=== PATIENT | female | born 1950 | race Caucasian/White ===

== ENCOUNTER 2022-02-19 13:25 | Inpatient (IN) | payer MEDICARE, SELFPAY ==
[2022-02-19] VITALS (22 sets, daily range): BP systolic 134–165; BP diastolic 59–84; PULSE 79–85; RESP 14–16; TEMP 36.8–36.9; O2SAT 98–100; BMI 20.3
--- NOTE | ~2022-02-19 | XR_ITS ---
EXAMINATION: XR femur RT min 2V INDICATION: Right hip pain TECHNIQUE: Two views of the right femur are obtained on four radiographs. COMPARISON: None FINDINGS: There is an acute subcapital fracture of the right femoral neck. The femoral head is well-s eated in the acetabulum. No additional osseous abnormality is identified. IMPRESSION: 1. Acute subcapital right femoral neck fracture. Reviewed, dictated and finalized at location A.
--- NOTE | ~2022-02-19 | XR_ITS ---
EXAMINATION: XR hip RT 1V DATE: 02/21/2022 18:23 INDICATION: Right hip arthroplasty. Postop. TECHNIQUE: A single view of right hip was obtained. COMPARISON: Right hip radiographs 02/19/2022 FINDINGS: There is a total right hip arthroplasty in near-anatomic alignment. No fracture. There is g as in the hip joint and soft tissues, consistent with recent surgery. IMPRESSION: 1. Total right hip arthroplasty in near-anatomic alignment. Reviewed, dictated and finalized at location A.
--- NOTE | ~2022-02-19 | CT_ITS ---
EXAMINATION: CTA chest PE protocol DATE: 02/21/2022 21:58 INDICATION: Chest pressure. TECHNIQUE: Computed tomography angiography (CTA) of the chest was performed with 100 mL Omnipaque-350 intravenous contrast timed to evaluate the pulmonary arteries. Coronal maximum intensity projection 3D-reconstructions were created by the technologist. Automated exposure control and iterative reconst ruction technique were employed. The dose-length product was 132.87 mGy-cm. COMPARISON: Chest single view 02/20/2022 FINDINGS: There is mild scarring at the lung apices. There are airspace and groundglass opacities in left lower lobe and lingula, consistent with pneumonia. There is mild atelectasis in the lungs. No pl eural effusion. The heart size is normal. There are coronary artery calcifications. No pericardial ef fusion. There is no pulmonary embolus. There are changes of cholecystectomy. There is moderate thorac ic spondylosis. IMPRESSION: 1. No pulmonary embolus. 2. Pneumonia involving left lower lobe and lingula. Reviewed, dictated and finalized at location A.
--- NOTE | ~2022-02-19 | XR_ITS ---
EXAMINATION: XR pelvis 1-2V INDICATION: Right hip pain TECHNIQUE: AP view the pelvis is obtained. COMPARISON: None available FINDINGS: There is an acute subcapital fracture of the right femoral neck. No additional fracture is identified. Phleboliths are noted in the right pelvis. IMPRESSION: 1. Subcapital right femoral neck fracture. Reviewed, dictated and finalized at location A.
--- NOTE | ~2022-02-19 | XR_ITS ---
EXAMINATION: XR chest 1V portable INDICATION: Pain after fall TECHNIQUE: Portable AP chest at 0607 hours COMPARISON: None available FINDINGS: The lungs are free of acute opacities. No pleural effusion or pneumothorax. The cardiomedia stinal silhouette is normal. IMPRESSION: 1. No acute cardiopulmonary abnormality. Reviewed, dictated and finalized at location A.
--- NOTE | ~2022-02-19 | XR_ITS ---
XR knee RT 2V 02/21/2022 12:49 Indication: Right knee pain Procedure: 2 views right knee Comparison: No prior studies for comparison. Findings: There is mild patellofemoral compartment osteoarthritis of the right knee. No fracture, sub luxation or dislocation. No significant joint effusion. Impression: 1: Mild patellofemoral compartment osteoarthritis of the right knee. Reviewed, dictated and finalized at location B. Impression: 1: Mild patellofemoral compartment osteoarthritis of the right knee.
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
[2022-02-19] MEDS: fentaNYL CITRATE INJ (*CRX) 100 MCG/2 ML VIAL 50 MCG IV PUSH (13:47)
[2022-02-19 15:24] LABS: Basophils Absolute Auto 0.1 K/mm3 (0.0-0.1); Basophils Percent Auto 0.7 % (0.2-1.2); Eosinophils Absolute Auto 0.1 K/mm3 (0-0.3); Eosinophils Percent Auto 1.8 % (0-4.4); Hematocrit 32.2 % (37.0-47.0); Hemoglobin 10.1 g/dL (12.0-15.0); Immature Granulocyte Absolute 0.04 K/mm3 (0.00-0.031); Immature Granulocyte Percent A 0.5 % (0-0.5); Lymphocytes Percent Auto 16.9 % (18.3-44.2); Mean Corpuscular HGB Conc 31.4 g/dl (32-36); Mean Corpuscular Hemoglobin 30.4 pg (26-34); Mean Platelet Volume 8.8 fl (7.4-10.4); Monocytes Absolute Auto 0.5 K/mm3 (0.1-0.6); Monocytes Percent Auto 5.9 % (2.6-8.5); Neutrophils Absolute Auto 5.7 K/mm3 (1.3-6.7); Neutrophils Percent Auto 74.2 % (45.5-73.1); Platelet Count Result 262 k/mm3 (150-375); Red Blood Count 3.32 M/mm3 (4.2-5.4); White Blood Count 7.7 K/mm3 (4.5-10.0)
[2022-02-19 15:37] LABS: Alanine Aminotransferase 27 U/L (6-35); Albumin Level 4.2 g/dL (3.5-5.1); Alkaline Phosphatase 75 U/L (38-126); Anion Gap 5 mmol/L (8-16); Aspartate Amino Transferase 32 U/L (14-36); Bilirubin,Total 0.4 mg/dL (0.2-1.3); Blood Urea Nitrogen 21 mg/dL (7-17); Calcium 9.5 mg/dL (8.4-10.2); Carbon Dioxide 28 mmol/L (22-30); Chloride 101 mmol/L (98-107); Estimated CRCL calculation 35 ml/min; Estimated Glomerular Filt Rate 49; Glucose 229 mg/dL (65-110); Potassium 4.8 mmol/L (3.4-5.0); Sodium 134 mmol/L (137-145)
[2022-02-19] MEDS: MORPHINE SULFATE (*CRX) 4 MG/ML INJ IV PUSH ×3 (17:25→23:00)
--- NOTE | 2022-02-19 18:10 | PC.NURSE ---
This patient, Hilda Mathew, was admitted to 2 Medical Room 243-. Patient/family oriented to hospital policies and general routines including ID bracelet, bed and alarms, visiting hours, pain management, procedures, bathroom and other care routines, personal items, smoking policy, room service/diet, and visiting hours. Information on how to activate the Rapid Response Team has been discussed. Patient/Family are encouraged to report perceived risks to care and to ask questions if they do not understand what they are told or what they should do.
[2022-02-19 20:09] LABS: Glucose Point of Care 242 mg/dl (65-105)
[2022-02-19] MEDS: traZODone HCL 25 MG TABLET PO (23:00)
[2022-02-19] MEDS: ESCITALOPRAM OXALATE 10 MG TABLET PO (23:00)
[2022-02-19 23:18] LABS: Glucose Point of Care 357 mg/dl (65-105)
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
[2022-02-19] MEDS: INSULIN ASPART (*BKC) 100 UNITS/ML 6 UNITS SUB-Q (23:39)
[2022-02-19] MEDS: MAGNESIUM OXIDE 400 MG TABLET PO (23:41)
[2022-02-19] MEDS: metFORMIN HCL 500 MG TABLET 1000 MG PO (23:41)
[2022-02-19] MEDS: PANTOPRAZOLE 40 MG TABLET PO (23:58)
[2022-02-20 03:58] LABS: Glucose Point of Care 285 mg/dl (65-105)
[2022-02-20] MEDS: MORPHINE SULFATE (*CRX) 4 MG/ML INJ 1 MG IV PUSH ×3 (04:24→23:04)
[2022-02-20 05:36] LABS: Hemoglobin A1C 8.8 % (<5.7)
[2022-02-20 05:39] LABS: Magnesium 1.8 mg/dL (1.6-2.3)
[2022-02-20 06:00] VITALS: BP 140/60; PULSE 84; RESP 16; TEMP 36.6; O2SAT 100
[2022-02-20 06:28] LABS: Hemoglobin 10.2 g/dL (12.0-15.0); Mean Corpuscular HGB Conc 30.9 g/dl (32-36); Mean Corpuscular Hemoglobin 30.8 pg (26-34); Mean Corpuscular Volume 99.7 fl (80-100); Mean Platelet Volume 9.4 fl (7.4-10.4); Platelet Count Result 259 k/mm3 (150-375); Red Blood Count 3.31 M/mm3 (4.2-5.4); White Blood Count 7.3 K/mm3 (4.5-10.0)
--- NOTE | 2022-02-20 07:00 | ECG_ITS ---
Measurements Intervals Shirley Rate: 80 P: 70 ID: [id number] QRS: 35 QRSD: 85 T: 60 QT: 387 QTc: 447 Interpretive Statements SINUS RHYTHM NORMAL ECG NO PREVIOUS ECG AVAILABLE FOR COMPARISON Electronically Signed On 02-20-2022 14:40:50 CDT by Geovani Okeefe M.D.
[2022-02-20 08:32] VITALS: O2SAT 96
[2022-02-20 08:42] LABS: Glucose Point of Care 298 mg/dl (65-105)
[2022-02-20 09:06] LABS: Anion Gap 9 mmol/L (8-16); Blood Urea Nitrogen 18 mg/dL (7-17); Calcium 9.6 mg/dL (8.4-10.2); Carbon Dioxide 22 mmol/L (22-30); Chloride 103 mmol/L (98-107); Estimated CRCL calculation 38 ml/min; Estimated Glomerular Filt Rate 55; Glucose 295 mg/dL (65-110); Potassium 4.5 mmol/L (3.4-5.0); Sodium 134 mmol/L (137-145)
[2022-02-20] MEDS: LEVOTHYROXINE SODIUM 112 MCG TABLET PO (09:19)
[2022-02-20] MEDS: MAGNESIUM OXIDE 400 MG TABLET PO ×2 (09:20→17:40)
[2022-02-20] MEDS: LORATADINE 10 MG TABLET PO (09:20)
[2022-02-20] MEDS: PANTOPRAZOLE 40 MG TABLET PO ×2 (09:21→17:40)
[2022-02-20] MEDS: INSULIN ASPART (*BKC) 100 UNITS/ML SUB-Q ×2 (09:22→17:40)
[2022-02-20] MEDS: INSULIN GLARGINE (*BKC) 100 UNITS/ML 8 UNITS SUB-Q (09:24)
[2022-02-20 09:35] LABS: Total Triiodothyronine (T3) 0.86 NG/ML (0.97-1.69)
[2022-02-20] MEDS: HYDROcodone/acetaminophen (*CRX) 5-325 MG TABLET 1 TAB PO ×2 (09:45→17:43)
[2022-02-20 11:45] LABS: Glucose Point of Care 190 mg/dl (65-105)
[2022-02-20 13:45] VITALS: BP 160/69; PULSE 74; RESP 16; TEMP 36.2; O2SAT 99
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
--- NOTE | 2022-02-20 13:55 | PM.IMPN ---
Progress Note: A&P Assessment and Plan (1) Subcapital fracture of right femur: Code(s): S72.011A - Unspecified intracapsular fracture of right femur, initial encounter for closed fracture Status: Acute Assessment and Plan: Secondary to fall Femur and pelvic x-ray showed acute subcapital right femoral neck fracture Appreciate orthopedic surgery consultation Hopeful surgical intervention tomorrow. Patient will be made NPO after midnight Analgesics available as needed for pain Supportive care Will need PT/OT postoperatively (2) Renal insufficiency: Code(s): N28.9 - Disorder of kidney and ureter, unspecified Status: Acute Assessment and Plan: Creatinine 1.1 on presentation, improved to 1.0 today Likely has mild degree of chronic kidney disease Monitor BMP (3) Type 2 diabetes mellitus: Code(s): E11.9 - Type 2 diabetes mellitus without complications Status: Acute Assessment and Plan: A1c is 8.8. Blood sugars have been elevated above target, ranging from 190-290 today Continue Accu-Cheks, sliding scale insulin, hypoglycemic protocol Continue Lantus 8 units qHS Continue home metformin Monitor glucose trends and adjust insulin regimen as needed (4) Hypothyroidism: Code(s): E03.9 - Hypothyroidism, unspecified Status: Acute Assessment and Plan: TSH is elevated at 11.5, T4 is normal and T3 is slightly decreased. Will increase levothyroxine to 125 mcg daily She will need repeat reflex TSH in 4-6 weeks (5) Dyslipidemia: Code(s): E78.5 - Hyperlipidemia, unspecified Status: Acute Assessment and Plan: LFTs within normal limits. Continue statin (6) Chronic anemia: Code(s): D64.9 - Anemia, unspecified Status: Acute Assessment and Plan: Patient reports chronic anemia. H&H remaining stable Will need close monitoring postoperatively Subjective Date/time seen: 02/20/22 13:55 Interval history: Date of service: 02/20/2022 Hilda Mathew is a 71-year-old female with a history of hypothyroidism, type 2 diabetes mellitus, pulmonary nodule, hyperlipidemia, anxiety, and chronic anemia who is seen in follow-up for right hip fracture. She is feeling a bit better today. She currently rates her right hip pain as 5-6/10. When she is laying down and not moving she is more comfortable. If she is shifted or needs to move around, her pain increases to about 8/10. She also has some soreness in the right knee and the calf. She reports her last bowel movement was yesterday. She denies any urinary symptoms. She denies fevers, chills, nausea, vomiting, dizziness, lightheadedness, or weakness. She endorses shortness of breath with exertion which she states has been a chronic issue for over 2 years and she is being evaluated by pulmonology. She denies wheezing. She does have occasional intermittent cough. Denies chest pain. She has no additional concerns. Review of Systems Review of Systems: All systems reviewed & are unremarkable except as noted in HPI and below Exam Narrative: General: Thin, well-appearing 71-year-old female, sitting up in bed, comfortable, NARD Neuro: awake, alert and oriented x4, speech clear, no focal neuro deficits noted HEENMT: normocephalic, atraumatic, EOMI, sclerae anicteric Respiratory: clear to auscultation bilaterally, nonlabored breathing Cardio: regular rate, regular rhythm with S1-S2 Abdomen: nondistended, normoactive bowel sounds, soft, nontender to palpation Extremities: Right hip is tender to palpation, bilateral lower extremities without edema, erythema, or tenderness to palpation, DP pulses 2+ bilaterally, able to wiggle toes bilaterally, brisk capillary refill Skin: no rashes or lesions, warm and dry Psych: appropriate mood and affect, judgment and insight intact Objective Data Vital Signs Vital Signs: Vital Signs - 24 hr 02/19/22 18:48 02/07
[2022-02-20 17:02] LABS: Glucose Point of Care 229 mg/dl (65-105)
[2022-02-20 20:47] VITALS: BP 151/75; PULSE 79; RESP 16; TEMP 36.6; O2SAT 99
[2022-02-20] MEDS: ESCITALOPRAM OXALATE 10 MG TABLET PO (21:00)
[2022-02-20] MEDS: ZOLPIDEM TARTRATE (*CRX) 5 MG TABLET PO (21:05)
[2022-02-20 21:50] LABS: Glucose Point of Care 179 mg/dl (65-105)
[2022-02-21] VITALS (9 sets, daily range): BP systolic 135–160; BP diastolic 60–71; PULSE 74–84; RESP 10–21; TEMP 36.5–36.9; O2SAT 94–100
[2022-02-21] MEDS: MORPHINE SULFATE (*CRX) 4 MG/ML INJ 1 MG IV PUSH (04:27)
[2022-02-21 04:35] LABS: Glucose Point of Care 225 mg/dl (65-105)
[2022-02-21 05:26] LABS: Hematocrit 33.6 % (37.0-47.0); Hemoglobin 10.9 g/dL (12.0-15.0); Mean Corpuscular HGB Conc 32.4 g/dl (32-36); Mean Corpuscular Hemoglobin 30.8 pg (26-34); Mean Corpuscular Volume 94.9 fl (80-100); Platelet Count Result 280 k/mm3 (150-375); Red Blood Count 3.54 M/mm3 (4.2-5.4); Red Cell Distribution Width 11.9 % (11.5-14.5)
[2022-02-21 05:35] LABS: Anion Gap 5 mmol/L (8-16); Blood Urea Nitrogen 14 mg/dL (7-17); Calcium 9.4 mg/dL (8.4-10.2); Carbon Dioxide 30 mmol/L (22-30); Chloride 96 mmol/L (98-107); Estimated CRCL calculation 38 ml/min; Estimated Glomerular Filt Rate 55; Glucose 233 mg/dL (65-110); Potassium 4.2 mmol/L (3.4-5.0); Sodium 131 mmol/L (137-145)
[2022-02-21] MEDS: HYDROcodone/acetaminophen (*CRX) 5-325 MG TABLET 1 TAB PO ×2 (06:38→11:17)
[2022-02-21] MEDS: LEVOTHYROXINE SODIUM 125 MCG TABLET PO (06:39)
[2022-02-21 08:43] LABS: Glucose Point of Care 358 mg/dl (65-105)
[2022-02-21] MEDS: INSULIN ASPART (*BKC) 100 UNITS/ML SUB-Q (09:21)
--- NOTE | 2022-02-21 10:19 | PM.IMPN ---
Progress Note: A&P Assessment and Plan (1) Subcapital fracture of right femur: Code(s): S72.011A - Unspecified intracapsular fracture of right femur, initial encounter for closed fracture Status: Acute Assessment and Plan: Secondary to fall Femur and pelvic x-ray showed acute subcapital right femoral neck fracture Appreciate orthopedic surgery consultation Planning for right total hip arthroplasty today Analgesics available as needed for pain Supportive care Will need PT/OT postoperatively (2) Renal insufficiency: Code(s): N28.9 - Disorder of kidney and ureter, unspecified Status: Acute Assessment and Plan: Creatinine 1.1 on presentation, improved to 1.0 today Likely has mild degree of chronic kidney disease Monitor BMP (3) Type 2 diabetes mellitus: Code(s): E11.9 - Type 2 diabetes mellitus without complications Status: Acute Assessment and Plan: A1c is 8.8. Blood sugars have been elevated above target, ranging from 230-350 today Continue Accu-Cheks, moderate does sliding scale insulin, hypoglycemic protocol Increase Lantus to 12 units qHS Continue home metformin Consider addition of scheduled mealtime insulin when patient is no longer NPO Monitor glucose trends and adjust insulin regimen as needed (4) Hypothyroidism: Code(s): E03.9 - Hypothyroidism, unspecified Status: Acute Assessment and Plan: TSH is elevated at 11.5, T4 is normal and T3 is slightly decreased. Levothyroxine increased to 125 mcg daily (02/20) She will need repeat reflex TSH in 4-6 weeks (5) Dyslipidemia: Code(s): E78.5 - Hyperlipidemia, unspecified Status: Acute Assessment and Plan: LFTs within normal limits. Continue statin (6) Chronic anemia: Code(s): D64.9 - Anemia, unspecified Status: Acute Assessment and Plan: History of chronic anemia. H&H remaining stable Will need close monitoring postoperatively Plan Obtain right knee x-ray secondary to right knee pain after fall Subjective Date/time seen: 02/21/22 10:19 Interval history: Date of service: 02/21/2022 Hilda Mathew is a 71-year-old female with a history of hypothyroidism, type 2 diabetes mellitus, pulmonary nodule, hyperlipidemia, anxiety, and chronic anemia who is seen in follow-up for right hip fracture. She is feeling improved today. She states her pain medications are helping. Currently she describes 5/10 pain in her right hip. She also notes pain in her right knee that she rates as 5-6/10. She is having worsened discomfort if she has to move or shift around in bed. She has been using the bedpan. She denies urinary symptoms. States her last bowel movement was 2 days ago. She denies shortness of breath, cough, wheezing, chest pain. No nausea, vomiting, fever, chills. Review of Systems Review of Systems: All systems reviewed & are unremarkable except as noted in HPI and below Exam Narrative: General: Thin, well-appearing 71-year-old female, sitting up in bed, comfortable, NARD Neuro: awake, alert and oriented x4, speech clear, no focal neuro deficits noted HEENMT: normocephalic, atraumatic, EOMI, sclerae anicteric Respiratory: clear to auscultation bilaterally, nonlabored breathing Cardio: regular rate, regular rhythm with S1-S2 Abdomen: nondistended, normoactive bowel sounds, soft, nontender to palpation Extremities: Right hip is tender to palpation, right knee nontender to palpation, nonedematous, no bruising, bilateral lower extremities without edema, erythema, or tenderness to palpation, DP pulses 2+ bilaterally, able to wiggle toes bilaterally, brisk capillary refill Skin: no rashes or lesions, warm and dry Psych: appropriate mood and affect, judgment and insight intact Objective Data Vital Signs Vital Signs: Vital Signs - 24 hr 02/20/22 13:45 02/20/22 20:47 02/21/22 04:00 Temperature 97.1 F L 97.
[2022-02-21 12:05] LABS: Glucose Point of Care 138 mg/dl (65-105)
[2022-02-21] MEDS: PANTOPRAZOLE 40 MG TABLET PO (12:06)
[2022-02-21] MEDS: TRANEXAMIC ACID 1,000MG/ISO100 1,000 MG/100 ML BAG 200 MG IVPB (14:50)
[2022-02-21] MEDS: KETOROLAC 15 MG/ML VIAL (*BKC) IV PUSH (14:50)
--- NOTE | 2022-02-21 15:02 | WPDANESEPPF ---
Anes - Initial Pre Proc Eval Procedure: Operation Date: 02/21/22 15:30 Proposed Procedures p Right Total Hip Arthroplasty - Gutierrez Contreras MD Date/Time: 02/21/22 15:02 Surgeon: Yaneth Barclay PA-C Pre Op Diagnosis: Right Femur Neck Fx Patient Data Age: 71 Gender: F Height: 1.6 m Weight: 52.1 kg Last Vital Signs Temp 36.5 C 02/21/22 13:30 Pulse 83 02/21/22 13:30 Resp 16 02/21/22 13:30 BP 148/66 H 02/21/22 13:30 Pulse Ox 99 02/21/22 13:30 O2 Del Method Room Air 02/20/22 08:32 Allergies Allergy/AdvReac Type Severity Reaction Status Date / Time No Known Allergies Allergy Verified 02/19/22 13:38 Home Medications Medication Instructions Recorded Confirmed Type escitalopram oxalate 20 mg tablet 10 mg PO HS 02/19/22 02/19/22 History insulin detemir U-100 100 unit/mL 2 unit subcut BID 02/19/22 02/19/22 History (3 mL) subcutaneous pen insulin detemir U-100 100 unit/mL 4 unit subcut BID 02/19/22 02/19/22 History (3 mL) subcutaneous pen (Levemir FlexTouch U-100 Insulin) levothyroxine 112 mcg tablet 112 mcg PO DAILY 02/19/22 02/19/22 History loratadine 10 mg tablet (Claritin) 10 mg PO DAILY 02/19/22 02/19/22 History magnesium oxide 400 mg PO BID 02/19/22 02/19/22 History metformin 1,000 mg tablet 1,000 mg PO BID 02/19/22 02/19/22 History omeprazole 20 mg capsule,delayed 20 mg PO BID 02/19/22 02/19/22 History release simvastatin 20 mg tablet 10 mg PO 3XW 02/19/22 02/19/22 History trazodone 50 mg tablet 25 mg PO HS 02/19/22 02/19/22 History Laboratory Tests 02/20/22 02/20/22 02/21/22 16:49 21:47 04:31 WBC RBC Hgb Hct MCV MCH MCHC RDW Plt Count MPV Sodium Potassium Chloride Carbon Dioxide Anion Gap BUN Creatinine Estim Creat Clear Calc Estimated GFR Glucose POC Capillary Glucose 229 mg/dl H mg/dl 179 mg/dl H mg/dl 225 mg/dl H mg/dl (65-105) (65-105) (65-105) Calcium 02/21/22 02/21/22 02/21/22 05:03 05:03 08:38 WBC 7.0 K/mm3 K/mm3 (4.5-10.0) RBC 3.54 M/mm3 L M/mm3 (4.2-5.4) Hgb 10.9 g/dL L g/dL (12.0-15.0) Hct 33.6 % L % (37.0-47.0) MCV 94.9 fl fl (80-100) MCH 30.8 pg pg (26-34) MCHC 32.4 g/dl g/dl (32-36) RDW 11.9 % % (11.5-14.5) Plt Count 280 k/mm3 k/mm3 (150-375) MPV 9.0 fl fl (7.4-10.4) Sodium 131 mmol/L L mmol/L (137-145) Potassium 4.2 mmol/L mmol/L (3.4-5.0) Chloride 96 mmol/L L mmol/L (98-107) Carbon Dioxide 30 mmol/L mmol/L (22-30) Anion Gap 5 mmol/L L mmol/L (8-16) BUN 14 mg/dL mg/dL (7-17) Creatinine 1.00 mg/dL mg/dL (0.7-1.0) Estim Creat Clear Calc 38 ml/min ml/min Estimated GFR 55 L (59 - ) Glucose 233 mg/dL H mg/dL (65-110) POC Capillary Glucose 358 mg/dl H mg/dl (65-105) Calcium 9.4 mg/dL mg/dL (8.4-10.2) 02/21/22 12:02 WBC RBC Hgb Hct MCV MCH MCHC RDW Plt Count MPV Sodium Potassium Chloride Carbon Dioxide Anion Gap BUN Creatinine Estim Creat Clear Calc Estimated GFR Glucose POC Capillary Glucose 138 mg/dl H mg/dl (65-105) Calcium Patient hx anesthesia problems: none Family hx anesthesia problems: none Results Review: All pre-operative results and documents have been reviewed as part of the pre-operative evaluation. [facility] Past Medical History Medical History Anxiety Arthritis Chronic anemia Dyslipide
[2022-02-21 15:04] LABS: Glucose Point of Care 124 mg/dl (65-105)
--- NOTE | 2022-02-21 15:29 | WPDHPUPDATE1 ---
History and Physical Update Update Date/Time: 02/21/22 15:29 History and Physical has been reviewed, including an updated exam of the patient. There are NO changes in the patient's condition. Risks, benefits, and alternatives have been discussed and questions answered. Patient agrees to proceed with procedure.
[2022-02-21] MEDS: ceFAZolin 2 GM/D5W 50 ML 2 GM/50 ML BAG IVPB (15:53)
[2022-02-21] MEDS: TRANEXAMIC ACID 1,000 MG/10 ML AMPUL 1000 MG IV PUSH (17:37)
[2022-02-21] MEDS: LACTATED RINGERS 1,000 ML 30 ML IV CONT ×2 (18:15)
[2022-02-21 18:20] LABS: Glucose Point of Care 177 mg/dl (65-105)
--- NOTE | 2022-02-21 18:22 | W.PM.PROC2 ---
Procedure Note - Detailed Date of Procedure 02/21/22 Pre-op Diagnosis Right Femur Neck Fx Post-op Diagnosis Same Procedure Performed R WILLY Surgeon Gutierrez Contreras MD Anesthesia General Description of Procedure THE PATIENT WAS TAKEN TO THE OPERATING ROOM IN STABLE CONDITION AND WAS PLACED IN THE LATERAL DECUBITUS AND THE RIGHT LOWER EXTREMITY WAS PREPPED AND DRAPED IN THE STERILE FASHION. INCISION WAS MADE IN THE POSTERIOR LATERAL SIDE OF THE HIP, DOWN TO THE FASCIA LAYER. THE FASCIA WAS INCISED. THE SHORT EXTERNAL ROTATORS WERE EXPOSED. THE SCIATIC NERVE WAS IDENTIFIED. INCISION WAS MADE THROUGH THE SHORT EXTERNAL ROTATORS AND THE CAPSULE OF THE HIP JOINT. FRESH HEMATOMA WAS OBSERVED FROM THE FRACTURE. AN OSTEOTOMY WAS MADE TO THE FEMORAL NECK ABOUT 1 CM PROXIMAL TO THE LESSER TROCHANTER. THE FEMORAL HEAD WAS REMOVED AND WAS SIZED TO 45. THE ACETABULUM WAS EXPOSED. BEGINNING WITH A 43 REAMER THE ACETABULUM WAS REAMED TO 47 MM. A 47 MM TRIAL WAS PLACED IN 35 DEG OF ABDUCTION AND ANTEVERSION WAS IN ALIGNMENT WITH THE TRANS ACETABULAR LIGAMENT. THE FIT WAS EXCELLENT. THE TRIAL WAS REMOVED. A 50 MM BIOMET G7 COMPONENT WAS THEN TAPPED IN TO PLACE IN 35 DEG OF ABDUCTION AND ANTEVERSION IN ALIGNMENT WITH THE TRANSVERSE ACETABULAR LIGAMENT. THE FIT WAS EXCELLENT. THE ACETABULAR LINER WAS PLACED AND CHECKED FOR STABILITY. NEXT THE FEMUR WAS PREPARED WITH INITIAL CANAL FINDER THEN SEQUENTIAL BROACHING WITH A TAPERLOC HIP SYSTEM, UNTIL A 9 BROACH FIT WELL IN 15 OF ANTEVERSION. A +3 STANDARD OFFSET NECK WITH 32 MM HEAD TRIAL WAS PLACED. THE SHUCK TEST WAS EXCELLENT AND THE STABILITY IN FLEXION AND ROTATION WAS EXCELLENT. LEG LENGTHS WERE GROSSLY EQUAL. TRIALS WERE REMOVED. A BIOMET TAPERLOC 9 STEM WAS PLACED WITH A STANDARD OFFSET NECK. THE FIT WAS EXCELLENT IN 15 DEG OF ANTEVERSION. A +3 CERAMIC 32 MM FEMORAL HEAD WAS PLACED. THE HIP WAS TRIALED AND THE STABILITY WAS EXCELLENT WERE THE LEG LENGTHS AND THE SHUCK TEST. THE WOUND WAS IRRIGATED WITH STERILE BETADINE AND WATER FOR 3 MIN. THEN WASHED AGAIN. THE SCIATIC NERVE WAS IDENTIFIED AGAIN. THE CAPSULE AND THE EXTERNAL ROTATORS WERE APPROXIMATED WITH NUMBER 1 VICRYL. THE FASCIA WITH No 2 QUIL AND THE SUB CUTANEOUS LAYER WITH 2-0 ABSORBABLE SUTURE AND A RUNNING 3-0 SUBCUTICULAR STITCH FOR THE SKIN. DERMABOND WAS PLACED AND STERILE DRESSING WAS APPLIED. PATIENT WAS PLACED BACK ON TO THE SUPINE POSITION AND WAS EXTUBATED Estimated Blood Loss 300 Urine Output 450 Complications No immediate complications Condition Stable Disposition PACU
[2022-02-21] MEDS: ONDANSETRON INJ 4 MG/2 ML VIAL IV PUSH (19:59)
--- NOTE | 2022-02-21 21:20 | ECG_ITS ---
Measurements Intervals [place] Rate: 86 P: 53 ID: [id number] QRS: 29 QRSD: 82 T: 63 QT: 376 QTc: 452 Interpretive Statements SINUS RHYTHM NORMAL ECG COMPARED TO ECG 02/20/2022 07:28:14 NO SIGNIFICANT CHANGES Electronically Signed On 02-22-2022 8:47:28 CDT by Raymon Hernandez M.D.
[2022-02-21 22:39] LABS: Troponin I 0.015 ng/mL (0.000-0.034)
[2022-02-22] VITALS (7 sets, daily range): BP systolic 130–160; BP diastolic 58–78; PULSE 78–100; RESP 14–21; TEMP 36.3–36.7; O2SAT 98–100
[2022-02-22] MEDS: ESCITALOPRAM OXALATE 10 MG TABLET PO ×2 (00:11→20:35)
[2022-02-22] MEDS: MAGNESIUM OXIDE 400 MG TABLET PO ×4 (00:11→17:12)
[2022-02-22] MEDS: PANTOPRAZOLE 40 MG TABLET PO ×3 (00:11→17:12)
[2022-02-22] MEDS: SIMVASTATIN 5 MG TABLET 10 MG PO (00:11)
[2022-02-22] MEDS: LORATADINE 10 MG TABLET PO ×2 (00:12→09:37)
[2022-02-22] MEDS: KETOROLAC 15 MG/ML VIAL (*BKC) IV PUSH ×4 (00:15→19:26)
[2022-02-22] MEDS: ceFAZolin 2 GM/D5W 50 ML 2 GM/50 ML BAG IVPB ×3 (00:16→14:58)
[2022-02-22] MEDS: INSULIN GLARGINE (*BKC) 100 UNITS/ML 10 UNITS SUB-Q (00:20)
[2022-02-22 00:29] LABS: Glucose Point of Care 258 mg/dl (65-105)
[2022-02-22] MEDS: HYDROcodone/acetaminophen (*CRX) 7.5-325 MG TABLET 1 TAB PO (02:33)
[2022-02-22 06:13] LABS: Basophils Percent Auto 0.3 % (0.2-1.2); Eosinophils Percent Auto 0.1 % (0-4.4); Hematocrit 27.2 % (37.0-47.0); Hemoglobin 8.8 g/dL (12.0-15.0); Immature Granulocyte Absolute 0.04 K/mm3 (0.00-0.031); Immature Granulocyte Percent A 0.4 % (0-0.5); Lymphocytes Absolute Auto 1.22 K/mm3 (0.9-3.2); Lymphocytes Percent Auto 12.8 % (18.3-44.2); Mean Corpuscular HGB Conc 32.4 g/dl (32-36); Mean Corpuscular Hemoglobin 30.8 pg (26-34); Mean Corpuscular Volume 95.1 fl (80-100); Mean Platelet Volume 9.3 fl (7.4-10.4); Monocytes Percent Auto 10.5 % (2.6-8.5); Neutrophils Absolute Auto 7.2 K/mm3 (1.3-6.7); Neutrophils Percent Auto 75.9 % (45.5-73.1); Platelet Count Result 247 k/mm3 (150-375); Red Blood Count 2.86 M/mm3 (4.2-5.4); Red Cell Distribution Width 11.9 % (11.5-14.5); White Blood Count 9.5 K/mm3 (4.5-10.0)
[2022-02-22 06:26] LABS: Anion Gap 6 mmol/L (8-16); Blood Urea Nitrogen 20 mg/dL (7-17); Calcium 8.5 mg/dL (8.4-10.2); Carbon Dioxide 27 mmol/L (22-30); Chloride 95 mmol/L (98-107); Estimated CRCL calculation 30 ml/min; Estimated Glomerular Filt Rate 40; Glucose 210 mg/dL (65-110); Potassium 4.7 mmol/L (3.4-5.0); Sodium 128 mmol/L (137-145)
[2022-02-22 08:44] LABS: Glucose Point of Care 214 mg/dl (65-105)
--- NOTE | 2022-02-22 08:50 | WPDANESPN ---
Anes - Prog Note Post-Op Date/Time: 02/22/22 08:50 Mental status: baseline Vital Signs: Last Vital Signs Temp 36.3 C L 02/22/22 04:48 Pulse 80 02/22/22 04:48 Resp 21 H 02/22/22 04:48 BP 132/60 02/22/22 04:48 Pulse Ox 100 02/22/22 04:48 O2 Del Method Room Air 02/21/22 20:00 O2 Flow Rate 6 02/21/22 18:30 Pain Score (VAS): 2 I/O: Intake & Output 02/21/22 02/22/22 02/22/22 23:59 07:59 15:59 Intake Total 100 290 Output Total 900 600 Balance -800 -310 Laboratory Tests 02/22/22 05:17 02/22/22 05:17 02/21/22 02/21/22 02/21/22 12:02 15:02 18:16 WBC RBC Hgb Hct MCV MCH MCHC RDW Plt Count MPV Immature Gran % (Auto) Neut % (Auto) Lymph % (Auto) [place]dwell % (Auto) Eos % (Auto) Baso % (Auto) Lymph # (Auto) [place]dwell # (Auto) Eos # (Auto) Baso # (Auto) Abs Immat Gran (auto) Absolute Neuts (auto) Absolute Nucleated RBC Nucleated RBC % Sodium Potassium Chloride Carbon Dioxide Anion Gap BUN Creatinine Estim Creat Clear Calc Estimated GFR Glucose POC Capillary Glucose 138 H 124 H 177 H Calcium Troponin I 02/21/22 02/22/22 02/22/22 22:13 00:10 05:17 WBC 9.5 RBC 2.86 L Hgb 8.8 L Hct 27.2 L MCV 95.1 MCH 30.8 MCHC 32.4 RDW 11.9 Plt Count 247 MPV 9.3 Immature Gran % (Auto) 0.4 Neut % (Auto) 75.9 H Lymph % (Auto) 12.8 L Caldwell % (Auto) 10.5 H Eos % (Auto) 0.1 Baso % (Auto) 0.3 Lymph # (Auto) 1.22 Caldwell # (Auto) 1.0 H Eos # (Auto) 0.0 Baso # (Auto) 0.0 Abs Immat Gran (auto) 0.04 H Absolute Neuts (auto) 7.2 H Absolute Nucleated RBC 0.0 Nucleated RBC % 0.0 Sodium Potassium Chloride Carbon Dioxide Anion Gap BUN Creatinine Estim Creat Clear Calc Estimated GFR Glucose POC Capillary Glucose 258 H Calcium Troponin I 0.015 02/22/22 02/22/22 05:17 08:42 WBC RBC Hgb Hct MCV MCH MCHC RDW Plt Count MPV Immature Gran % (Auto) Neut % (Auto) Lymph % (Auto) Caldwell % (Auto) Eos % (Auto) Baso % (Auto) Lymph # (Auto) Caldwell # (Auto) Eos # (Auto) Baso # (Auto) Abs Immat Gran (auto) Absolute Neuts (auto) Absolute Nucleated RBC Nucleated RBC % Sodium 128 L Potassium 4.7 Chloride 95 L Carbon Dioxide 27 Anion Gap 6 L BUN 20 H Creatinine 1.30 H Estim Creat Clear Calc 30 Estimated GFR 40 L Glucose 210 H POC Capillary Glucose 214 H Calcium 8.5 Troponin I Patient Feedback: Patient satisfied with anesthetic care.
[2022-02-22] MEDS: LEVOTHYROXINE SODIUM 125 MCG TABLET PO (08:51)
[2022-02-22] MEDS: INSULIN ASPART (*BKC) 100 UNITS/ML SUB-Q ×3 (09:29→17:29)
[2022-02-22] MEDS: ASPIRIN 325 MG ENTERIC TABLET 650 MG PO (09:35)
[2022-02-22] MEDS: SENNA/DOCUSATE SODIUM TABLET 2 TAB PO ×2 (09:35→17:12)
[2022-02-22] MEDS: DOXYCYCLINE HYCLATE 100 MG TABLET PO ×2 (09:36→17:12)
[2022-02-22] MEDS: polyethylene glycoL 3350 17 GM POWD.PACK PO (09:37)
[2022-02-22] MEDS: SODIUM CHLORIDE 0.9% IV 1,000 ML 100 ML IV CONT ×2 (09:43→21:11)
[2022-02-22] MEDS: INSULIN DETEMIR 100 UNITS/ML SUB-Q (10:51)
--- NOTE | 2022-02-22 10:56 | P.PNIM_ITS ---
Progress Note: A&P Assessment and Plan (1) Subcapital fracture of right femur: Code(s): S72.011A - Unspecified intracapsular fracture of right femur, initial encounter for closed fracture Status: Acute Assessment and Plan: Secondary to fall * Femur and pelvic x-ray showed acute subcapital right femoral neck fracture * Appreciate orthopedic surgery consultation * S/p right total hip arthroplasty 02/21/[address] Contreras * Analgesics available as needed for pain * Supportive care * PT/OT * Weight bearing status, wound care, and DVT prophylaxis deferred to orthopedic surgery (2) Renal insufficiency: Code(s): N28.9 - Disorder of kidney and ureter, unspecified Status: Acute Assessment and Plan: Creatinine increased to 1.3 today * Begin IV fluids sodium chloride 100 ml/hr * Likely has mild degree of chronic kidney disease * Monitor BMP (3) Type 2 diabetes mellitus: Code(s): E11.9 - Type 2 diabetes mellitus without complications Status: Acute Assessment and Plan: A1c is 8.8. Blood sugars have been elevated above target, 200-215 today * Continue Accu-Cheks, moderate does sliding scale insulin, hypoglycemic protocol * Increase Lantus to 12 units qHS * Continue home metformin * Monitor glucose trends and adjust insulin regimen as needed (4) Hypothyroidism: Code(s): E03.9 - Hypothyroidism, unspecified Status: Acute Assessment and Plan: TSH is elevated at 11.5, T4 is normal and T3 is slightly decreased. * Levothyroxine increased to 125 mcg daily (02/20) * She will need repeat reflex TSH in 4-6 weeks (5) Dyslipidemia: Code(s): E78.5 - Hyperlipidemia, unspecified Status: Acute Assessment and Plan: LFTs within normal limits. * Continue statin (6) Chronic anemia: Code(s): D64.9 - Anemia, unspecified Status: Acute Assessment and Plan: History of chronic anemia. * H&H remaining stable * Will need close monitoring postoperatively (7) Pneumonia: Code(s): J18.9 - Pneumonia, unspecified organism Status: Acute Assessment and Plan: CTA completed on 02/21 revealed pneumonia of left lower lobe and lingula * Pt endorses mild SOB but denies cough. Remains afebrile. No leukocytosis * Will begin po doxycycline 100 mg q12h * Supportive care. Albuterol prn, guaifenesin, incentive spirometry * Will obtain covid and influenza tests although less likely given distribution of pneumonia Subjective Date/time seen: 02/22/22 10:56 Interval history: Date of service: 02/22/2022 Hilda Mathew is a 71-year-old female with a history of hypothyroidism, type 2 diabetes mellitus, pulmonary nodule, hyperlipidemia, anxiety, and chronic anemia who is seen in follow-up for right hip fracture. She feels better today. She states she had ?a terrible night.? She had an episode of chest pressure in her mid sternum did not radiate. She states this resolved in 1 hour and she feels that it was related to anxiety. She also notes that 1 of the staff members was during a very strong perfume that made her nauseated and short of breath and she feels this might have contributed to her symptoms. She had hip pain when she was moved to have her EKG completed last night. This morning she is feeling better.. Her pain is controlled at this time. She has been able to following surgery denies any urinary symptoms. She has not had a bowel movement since surgery. This morning she feels a little short of breath but denies any co
--- NOTE | 2022-02-22 10:56 | PM.IMPN ---
Progress Note: A&P Assessment and Plan (1) Subcapital fracture of right femur: Code(s): S72.011A - Unspecified intracapsular fracture of right femur, initial encounter for closed fracture Status: Acute Assessment and Plan: Secondary to fall Femur and pelvic x-ray showed acute subcapital right femoral neck fracture Appreciate orthopedic surgery consultation S/p right total hip arthroplasty 02/21/[address] Contreras Analgesics available as needed for pain Supportive care PT/OT Weight bearing status, wound care, and DVT prophylaxis deferred to orthopedic surgery (2) Renal insufficiency: Code(s): N28.9 - Disorder of kidney and ureter, unspecified Status: Acute Assessment and Plan: Creatinine increased to 1.3 today Begin IV fluids sodium chloride 100 ml/hr Likely has mild degree of chronic kidney disease Monitor BMP (3) Type 2 diabetes mellitus: Code(s): E11.9 - Type 2 diabetes mellitus without complications Status: Acute Assessment and Plan: A1c is 8.8. Blood sugars have been elevated above target, 200-215 today Continue Accu-Cheks, moderate does sliding scale insulin, hypoglycemic protocol Increase Lantus to 12 units qHS Continue home metformin Monitor glucose trends and adjust insulin regimen as needed (4) Hypothyroidism: Code(s): E03.9 - Hypothyroidism, unspecified Status: Acute Assessment and Plan: TSH is elevated at 11.5, T4 is normal and T3 is slightly decreased. Levothyroxine increased to 125 mcg daily (02/20) She will need repeat reflex TSH in 4-6 weeks (5) Dyslipidemia: Code(s): E78.5 - Hyperlipidemia, unspecified Status: Acute Assessment and Plan: LFTs within normal limits. Continue statin (6) Chronic anemia: Code(s): D64.9 - Anemia, unspecified Status: Acute Assessment and Plan: History of chronic anemia. H&H remaining stable Will need close monitoring postoperatively (7) Pneumonia: Code(s): J18.9 - Pneumonia, unspecified organism Status: Acute Assessment and Plan: CTA completed on 02/21 revealed pneumonia of left lower lobe and lingula Pt endorses mild SOB but denies cough. Remains afebrile. No leukocytosis Will begin po doxycycline 100 mg q12h Supportive care. Albuterol prn, guaifenesin, incentive spirometry Will obtain covid and influenza tests although less likely given distribution of pneumonia Subjective Date/time seen: 02/22/22 10:56 Interval history: Date of service: 02/22/2022 Hilda Mathew is a 71-year-old female with a history of hypothyroidism, type 2 diabetes mellitus, pulmonary nodule, hyperlipidemia, anxiety, and chronic anemia who is seen in follow-up for right hip fracture. She feels better today. She states she had ?a terrible night.? She had an episode of chest pressure in her mid sternum did not radiate. She states this resolved in 1 hour and she feels that it was related to anxiety. She also notes that 1 of the staff members was during a very strong perfume that made her nauseated and short of breath and she feels this might have contributed to her symptoms. She had hip pain when she was moved to have her EKG completed last night. This morning she is feeling better.. Her pain is controlled at this time. She has been able to following surgery denies any urinary symptoms. She has not had a bowel movement since surgery. This morning she feels a little short of breath but denies any cough. Denies fever, chills, nausea, or vomiting. Her appetite is fair. Review of Systems Review of Systems: All systems reviewed & are unremarkable except as noted in HPI and below Exam Narrative: General: thin, well-appearing 71-year-old female, sitting up in bed, comfortable, NARD Neuro: awake, alert and oriented x4, speech clear, no focal neuro deficits noted HEENMT: normocephalic, atraumatic, EOMI, sclerae an
[2022-02-22 13:05] LABS: Glucose Point of Care 329 mg/dl (65-105)
[2022-02-22] MEDS: guaiFENesin 12 HR 600 MG TABCR PO ×2 (13:19→20:35)
--- NOTE | 2022-02-22 13:23 | PCPTNOTE ---
Attempted to see patient for PT at this time, however per RN patient was eating lunch and asked if therapy can check back.
[2022-02-22 14:17] LABS: Influenza A QL RT-PCR Negative (Negative); Influenza B QL RT-PCR Negative (Negative)
[2022-02-22] MEDS: ONDANSETRON INJ 4 MG/2 ML VIAL IV PUSH (14:57)
--- NOTE | 2022-02-22 15:10 | PM.PNORT ---
Progress Note: A&P Assessment and Plan (1) Closed fracture of neck of right femur: Code(s): S72.001A - Fracture of unspecified part of neck of right femur, initial encounter for closed fracture Status: Acute Plan POD 1 DOING WELL. CONTINUE PT. ANTICIPATE DC HOME POSSIBLY TOMORROW Subjective Subjective Date/Time Seen: 02/22/22 15:10 POD 1 DOING WELL. WALKING WITH PT. NO CALF PAIN Exam Extrem: Other: VSS AFEBRILE DRESSING DRY NV INTACT CALF SOFT NON TENDER NEG HOMANS SIGN Objective Data Vital Signs Vital Signs: Vital Signs - 24 hr 02/21/22 18:15 02/21/22 18:30 02/21/22 18:40 Temperature 36.9 C Pulse Rate 77 77 Respiratory Rate 10 L 16 Blood Pressure 156/67 H 153/67 H Pulse Oximetry 100 100 Oxygen Delivery Simple Face Mask Simple Face Mask Room Air Oxygen Flow Rate 6 6 02/21/22 18:45 02/21/22 19:00 02/21/22 19:41 Temperature 36.7 C 36.6 C Pulse Rate 74 77 79 Respiratory Rate 18 18 20 Blood Pressure 160/67 H 152/66 H 150/60 H Pulse Oximetry 94 97 99 Oxygen Delivery Room Air Room Air Oxygen Flow Rate 02/21/22 20:48 02/22/22 00:58 02/21/22 20:00 Temperature 36.6 C 36.4 C Pulse Rate 84 78 78 Respiratory Rate 18 21 H 21 H Blood Pressure 135/71 160/73 H Pulse Oximetry 97 100 100 Oxygen Delivery Room Air Oxygen Flow Rate 02/22/22 04:48 02/22/22 09:56 02/22/22 10:28 Temperature 36.3 C L 36.7 C Pulse Rate 80 90 Respiratory Rate 21 H 16 Blood Pressure 132/60 136/58 L Pulse Oximetry 100 100 Oxygen Delivery Room Air Oxygen Flow Rate 02/22/22 15:05 Temperature 36.7 C Pulse Rate 91 Respiratory Rate 16 Blood Pressure 130/70 Pulse Oximetry 100 Oxygen Delivery Oxygen Flow Rate Intake/Output Intake/Output: Intake & Output 02/19/22 02/20/22 02/21/22 02/22/22 23:59 23:59 23:59 23:59 Intake Total 970 100 820 Output Total 1600 900 600 Balance -630 -800 220 Meds/Results Medications: Active Medications Generic Name Dose Route Start Last Admin Trade Name Freq PRN Reason Stop Dose Admin Acetaminophen 650 mg 02/20/22 00:20 Acetaminophen 325 Mg Tablet PO Q6H PRN Mild Pain (1-3) or Fever Acetaminophen 650 mg 02/21/22 19:03 Acetaminophen 325 Mg Tablet PO Q6H PRN Mild Pain (1-3) or Fever Hydrocodone Bitart/Acetaminophen 1 tab 02/21/22 11:12 02/21/22 11:17 Hydrocodone/Acetaminophen (*Crx) 5-325 Mg Tablet PO 1 tab Q4H PRN Administration Pain Rated 4-6 Hydrocodone Bitart/Acetaminophen 1 tab 02/21/22 19:03 02/22/22 02:33 Hydrocodone/Acetaminophen (*Crx) 7.5-325 Mg Tablet PO 1 tab Q3H PRN Administration Pain Rated 4-6 Albuterol 2 puff 02/22/22 11:32 Albuterol Sulfate (*Sp) Aerosol 1 Puff INHALATION Q6HRT PRN Shortness Of Breath Aspirin 650 mg 02/22/22 09:00 02/22/22 09:35 Aspirin 325 Mg Enteric Tablet PO 650 mg DAILY MORALES Administration Dextrose 12.5 gm 02/19/22 23:23 Dextrose 50% 25 Gm/50 Ml Syringe IV PUSH PRN PRN Hypoglycemia Protocol Diazepam 5 mg 02/21/22 19:03 Diazepam (*Crx) 5 Mg Tablet PO Q6H PRN Anxiety/Muscle Spasm Doxycycline Hyclate 100 mg 02/22/22 09:00 02/22/22 09:36 Doxycycline Hyclate 100 Mg Tablet PO 100 mg 0600,1800 MORALES Administration Escitalopram Oxalate 10 mg 02/19/22 22:35 02/22/22 00:11 Escitalopram Oxalate 10 Mg Tablet PO 10 mg HS MORALES Administration Glucagon 1 mg 02/19/22 23:23 Glucagon For Inj 1 Mg Vial IM PRN PRN Hypoglycemia Protocol Glucose 15 gm 02/19/22 23:23 Glucose Oral Gel 15 Gm Of Glucse In 37.5 Gm Tube PO PRN PRN Hypoglycemia Protocol Guaifenesin 600 mg 02/22/22 12:00 02/22/22 13:19 Guaifenesin 12 Hr 600 Mg Tabcr PO 600 mg Q12HR MORALES Administration Hydroxyzine HCl 50 mg 02/21/22 19:03 Hydroxyzine Hcl 25 Mg Tablet PO Q4H PRN Itching Dextrose 1,000 mls @ 100 mls/hr 02/19/22 23:23
[2022-02-22 17:29] LABS: Glucose Point of Care 230 mg/dl (65-105)
[2022-02-22] MEDS: INSULIN GLARGINE (*BKC) 100 UNITS/ML 12 UNITS SUB-Q (20:41)
[2022-02-22 20:55] LABS: Glucose Point of Care 192 mg/dl (65-105)
[2022-02-22] MEDS: ZOLPIDEM TARTRATE (*CRX) 5 MG TABLET PO (22:29)
[2022-02-23 02:50] VITALS: BP 146/68; PULSE 99; RESP 20; TEMP 36.6; O2SAT 99
[2022-02-23 06:01] LABS: Hematocrit 24.1 % (37.0-47.0); Hemoglobin 8.1 g/dL (12.0-15.0); Mean Corpuscular HGB Conc 33.6 g/dl (32-36); Mean Corpuscular Hemoglobin 31.6 pg (26-34); Mean Corpuscular Volume 94.1 fl (80-100); Mean Platelet Volume 9.1 fl (7.4-10.4); Platelet Count Result 217 k/mm3 (150-375); Red Blood Count 2.56 M/mm3 (4.2-5.4)
[2022-02-23 06:03] VITALS: BP 142/72; PULSE 99; RESP 20; TEMP 36.9; O2SAT 98
[2022-02-23 06:21] LABS: Anion Gap 7 mmol/L (8-16); Blood Urea Nitrogen 20 mg/dL (7-17); Calcium 8.2 mg/dL (8.4-10.2); Carbon Dioxide 25 mmol/L (22-30); Chloride 98 mmol/L (98-107); Estimated CRCL calculation 30 ml/min; Estimated Glomerular Filt Rate 40; Glucose 152 mg/dL (65-110); Potassium 3.6 mmol/L (3.4-5.0); Sodium 130 mmol/L (137-145)
[2022-02-23] MEDS: LEVOTHYROXINE SODIUM 125 MCG TABLET PO (06:29)
[2022-02-23] MEDS: DOXYCYCLINE HYCLATE 100 MG TABLET PO (06:29)
[2022-02-23 07:48] LABS: Glucose Point of Care 157 mg/dl (65-105)
[2022-02-23 08:15] LABS: SARS-CoV-2 RNA PCR Negative
[2022-02-23] MEDS: SIMVASTATIN 5 MG TABLET 10 MG PO (09:13)
[2022-02-23] MEDS: SENNA/DOCUSATE SODIUM TABLET 2 TAB PO (09:13)
[2022-02-23] MEDS: ASPIRIN 325 MG ENTERIC TABLET 650 MG PO (09:13)
[2022-02-23] MEDS: polyethylene glycoL 3350 17 GM POWD.PACK PO (09:14)
[2022-02-23] MEDS: PANTOPRAZOLE 40 MG TABLET PO (09:14)
[2022-02-23] MEDS: LORATADINE 10 MG TABLET PO (09:14)
[2022-02-23] MEDS: guaiFENesin 12 HR 600 MG TABCR PO (09:14)
[2022-02-23] MEDS: MAGNESIUM OXIDE 400 MG TABLET PO (09:14)
[2022-02-23] MEDS: HYDROcodone/acetaminophen (*CRX) 7.5-325 MG TABLET 1 TAB PO ×2 (09:15→17:22)
[2022-02-23 10:05] VITALS: BP 142/62; PULSE 85; RESP 14; TEMP 36.6; O2SAT 100
[2022-02-23 11:16] LABS: Glucose Point of Care 283 mg/dl (65-105)
[2022-02-23] MEDS: INSULIN ASPART (*BKC) 100 UNITS/ML SUB-Q (11:28)
[2022-02-23 14:00] VITALS: BP 130/64; PULSE 83; RESP 14; TEMP 37.1; O2SAT 100
--- NOTE | 2022-02-23 16:03 | PM.PNORT ---
Progress Note: A&P Assessment and Plan (1) Closed fracture of neck of right femur: Code(s): S72.001A - Fracture of unspecified part of neck of right femur, initial encounter for closed fracture Status: Acute Assessment and Plan: POD 2 DOING WELL. OK TO DC HOME F/U IN 6 WEEKS. PT PER HOME CARE. ECASA 325 MG BID X 4 WEEKS FOR DVT PROPHYLAXIS Subjective Subjective Date/Time Seen: 02/23/22 16:03 POD 2 DOING WELL WITH PT. NO CALF PAIN. PAIN WELL CONTROLLED Exam Extrem: Other: VSS AFEBRILE DRESSING DRY NV INTACT NEG HOMANS SIGN, CALF SOFT NON TENDER Objective Data Vital Signs Vital Signs: Vital Signs - 24 hr 02/22/22 18:22 02/22/22 22:22 02/22/22 20:00 Temperature 36.7 C 36.5 C Pulse Rate 96 100 100 Respiratory Rate 14 20 20 Blood Pressure 143/61 H 155/78 H Pulse Oximetry 100 98 98 Oxygen Delivery Room Air 02/23/22 02:50 02/23/22 06:03 02/23/22 10:05 Temperature 36.6 C 36.9 C 36.6 C Pulse Rate 99 99 85 Respiratory Rate 20 20 14 Blood Pressure 146/68 H 142/72 H 142/62 H Pulse Oximetry 99 98 100 Oxygen Delivery 02/23/22 08:15 02/23/22 14:00 Temperature 37.1 C Pulse Rate 83 Respiratory Rate 14 Blood Pressure 130/64 Pulse Oximetry 100 Oxygen Delivery Room Air Intake/Output Intake/Output: Intake & Output 02/20/22 02/21/22 02/22/22 02/23/22 23:59 23:59 23:59 23:59 Intake Total 636 867 6813 940 Output Total 7572 638 0628 1500 Balance -630 -800 840 -560 Meds/Results Medications: Active Medications Generic Name Dose Route Start Last Admin Trade Name Freq PRN Reason Stop Dose Admin Acetaminophen 650 mg 02/20/22 00:20 Acetaminophen 325 Mg Tablet PO Q6H PRN Mild Pain (1-3) or Fever Acetaminophen 650 mg 02/21/22 19:03 Acetaminophen 325 Mg Tablet PO Q6H PRN Mild Pain (1-3) or Fever Hydrocodone Bitart/Acetaminophen 1 tab 02/21/22 11:12 02/21/22 11:17 Hydrocodone/Acetaminophen (*Crx) 5-325 Mg Tablet PO 1 tab Q4H PRN Administration Pain Rated 4-6 Hydrocodone Bitart/Acetaminophen 1 tab 02/21/22 19:03 02/23/22 09:15 Hydrocodone/Acetaminophen (*Crx) 7.5-325 Mg Tablet PO 1 tab Q3H PRN Administration Pain Rated 4-6 Albuterol 2 puff 02/22/22 11:32 Albuterol Sulfate (*Sp) Aerosol 1 Puff INHALATION Q6HRT PRN Shortness Of Breath Aspirin 650 mg 02/22/22 09:00 02/23/22 09:13 Aspirin 325 Mg Enteric Tablet PO 650 mg DAILY MORALES Administration Dextrose 12.5 gm 02/19/22 23:23 Dextrose 50% 25 Gm/50 Ml Syringe IV PUSH PRN PRN Hypoglycemia Protocol Diazepam 5 mg 02/21/22 19:03 Diazepam (*Crx) 5 Mg Tablet PO Q6H PRN Anxiety/Muscle Spasm Doxycycline Hyclate 100 mg 02/22/22 09:00 02/23/22 06:29 Doxycycline Hyclate 100 Mg Tablet PO 100 mg 0600,1800 MORALES Administration Escitalopram Oxalate 10 mg 02/19/22 22:35 02/22/22 20:35 Escitalopram Oxalate 10 Mg Tablet PO 10 mg HS MORALES Administration Glucagon 1 mg 02/19/22 23:23 Glucagon For Inj 1 Mg Vial IM PRN PRN Hypoglycemia Protocol Glucose 15 gm 02/19/22 23:23 Glucose Oral Gel 15 Gm Of Glucse In 37.5 Gm Tube PO PRN PRN Hypoglycemia Protocol Guaifenesin 600 mg 02/22/22 12:00 02/23/22 09:14 Guaifenesin 12 Hr 600 Mg Tabcr PO 600 mg Q12HR MORALES Administration Hydroxyzine HCl 50 mg 02/21/22 19:03 Hydroxyzine Hcl 25 Mg Tablet PO Q4H PRN Itching Dextrose 1,000 mls @ 100 mls/hr 02/19/22 23:23 Dextrose 5% 1,000 Ml IVPB PRN PRN Hypoglycemia Protocol Sodium Chloride 1,000 mls @ 100 mls/hr 02/22/22 08:30 02/22/22 21:11 Normal Saline Iv IV CONT 100 mls/hr .Q10H MORALES Administration Insulin Aspart 3 - 6 units 02/21/22 09:07 02/23/22 11:28 Insulin Aspart (*Bkc) 100 Units/Ml SUB-Q 4 units TIDWM MORALES Administration Protocol Insulin Glargine 12 units 02/22/22 21:00 02/22/22 20:41
--- NOTE | 2022-02-23 16:32 | P.DS_ITS ---
DS: Admitting Diagnosis Discharge Date 02/23/2022 Admitting Diagnosis Right hip fracture DS: Discharge Diagnosis Discharge Diagnosis (1) Subcapital fracture of right femur: Code(s): S72.011A - Unspecified intracapsular fracture of right femur, initial encounter for closed fracture Status: Acute Assessment and Plan: Secondary to fall * Femur and pelvic x-ray showed acute subcapital right femoral neck fracture * She was seen in consultation by orthopedic surgery * Underwent right total hip arthroplasty on 02/21/[address] Contreras. Tolerated procedure well * She participated in PT/OT postoperatively. She will continue therapy with health upon discharge * Supportive care provided * Surgery, she will continue aspirin 325 mg b.i.d. for 28 days for DVT prophylaxis * Follow-up with orthopedic surgery in 6 weeks (2) Renal insufficiency: Code(s): N28.9 - Disorder of kidney and ureter, unspecified Status: Acute Assessment and Plan: Baseline is unknown as patient is not from the area and has not had prior labs here * Creatinine 1.1 on presentation and improved with IV fluids * Increased to 1.3 postoperatively. Suspect this is related to NPO status and NSAIDs given postoperatively * NSAIDs were discontinued and patient was rehydrated * Anticipate creatinine return to baseline * Repeat BMP in 1 week as an outpatient to ensure resolution * Possibly has mild degree of chronic kidney disease (3) Type 2 diabetes mellitus: Code(s): E11.9 - Type 2 diabetes mellitus without complications Status: Acute Assessment and Plan: A1c is 8.8. * Managed during admission with Accu-Cheks, moderate does sliding scale insulin, hypoglycemic protocol * Continue home lantus and metformin (4) Hypothyroidism: Code(s): E03.9 - Hypothyroidism, unspecified Status: Acute Assessment and Plan: TSH was elevated at 11.5, T4 is normal and T3 is decreased at 0.86. * Levothyroxine increased to 125 mcg daily * She will need repeat reflex TSH in 4-6 weeks (5) Dyslipidemia: Code(s): E78.5 - Hyperlipidemia, unspecified Status: Acute Assessment and Plan: LFTs within normal limits. * Continue statin (6) Chronic anemia: Code(s): D64.9 - Anemia, unspecified Status: Acute Assessment and Plan: History of chronic anemia. * H&H with slight decline postoperatively but no evidence of bleeding and patient asymptomatic * Repeat H&H in 1 week when BMP is collected (7) Pneumonia: Code(s): J18.9 - Pneumonia, unspecified organism Status: Acute Assessment and Plan: CTA completed on 02/21 revealed pneumonia of left lower lobe and lingula * Pt endorsed mild SOB but denies cough. Afebrile. No leukocytosis * 5 day course of po doxycycline 100 mg q12h * Supportive care. Albuterol prn, guaifenesin, incentive spirometry * COVID and influenza negative. DS: Summary Hospital Course Hospital Course: Date of admission: 02/19/2022 Date of discharge: 02/23/2022 Hilda Mathew is a 71-year-old female with a history of hypothyroidism, type 2 diabetes mellitus, pulmonary nodule, hyperlipidemia, anxiety, and chronic anemia?who presented to the emergency department on 02/19/2022 after a ground level fall secondary to a dog jumping on her with complaints of right hip pain. On presentation to the ED, her vital signs are stable, she was afebrile, and pelvis x-ray showed subcapital right femoral neck fracture. She was admitted
--- NOTE | 2022-02-23 16:32 | PM.DS ---
DS: Admitting Diagnosis Discharge Date 02/23/2022 Admitting Diagnosis Right hip fracture DS: Discharge Diagnosis Discharge Diagnosis (1) Subcapital fracture of right femur: Code(s): S72.011A - Unspecified intracapsular fracture of right femur, initial encounter for closed fracture Status: Acute Assessment and Plan: Secondary to fall Femur and pelvic x-ray showed acute subcapital right femoral neck fracture She was seen in consultation by orthopedic surgery Underwent right total hip arthroplasty on 02/21/[address] Contreras. Tolerated procedure well She participated in PT/OT postoperatively. She will continue therapy with health upon discharge Supportive care provided Surgery, she will continue aspirin 325 mg b.i.d. for 28 days for DVT prophylaxis Follow-up with orthopedic surgery in 6 weeks (2) Renal insufficiency: Code(s): N28.9 - Disorder of kidney and ureter, unspecified Status: Acute Assessment and Plan: Baseline is unknown as patient is not from the area and has not had prior labs here Creatinine 1.1 on presentation and improved with IV fluids Increased to 1.3 postoperatively. Suspect this is related to NPO status and NSAIDs given postoperatively NSAIDs were discontinued and patient was rehydrated Anticipate creatinine return to baseline Repeat BMP in 1 week as an outpatient to ensure resolution Possibly has mild degree of chronic kidney disease (3) Type 2 diabetes mellitus: Code(s): E11.9 - Type 2 diabetes mellitus without complications Status: Acute Assessment and Plan: A1c is 8.8. Managed during admission with Accu-Cheks, moderate does sliding scale insulin, hypoglycemic protocol Continue home lantus and metformin (4) Hypothyroidism: Code(s): E03.9 - Hypothyroidism, unspecified Status: Acute Assessment and Plan: TSH was elevated at 11.5, T4 is normal and T3 is decreased at 0.86. Levothyroxine increased to 125 mcg daily She will need repeat reflex TSH in 4-6 weeks (5) Dyslipidemia: Code(s): E78.5 - Hyperlipidemia, unspecified Status: Acute Assessment and Plan: LFTs within normal limits. Continue statin (6) Chronic anemia: Code(s): D64.9 - Anemia, unspecified Status: Acute Assessment and Plan: History of chronic anemia. H&H with slight decline postoperatively but no evidence of bleeding and patient asymptomatic Repeat H&H in 1 week when BMP is collected (7) Pneumonia: Code(s): J18.9 - Pneumonia, unspecified organism Status: Acute Assessment and Plan: CTA completed on 02/21 revealed pneumonia of left lower lobe and lingula Pt endorsed mild SOB but denies cough. Afebrile. No leukocytosis 5 day course of po doxycycline 100 mg q12h Supportive care. Albuterol prn, guaifenesin, incentive spirometry COVID and influenza negative. DS: Summary Hospital Course Hospital Course: Date of admission: 02/19/2022 Date of discharge: 02/23/2022 Hilda Mathew is a 71-year-old female with a history of hypothyroidism, type 2 diabetes mellitus, pulmonary nodule, hyperlipidemia, anxiety, and chronic anemia?who presented to the emergency department on 02/19/2022 after a ground level fall secondary to a dog jumping on her with complaints of right hip pain. On presentation to the ED, her vital signs are stable, she was afebrile, and pelvis x-ray showed subcapital right femoral neck fracture. She was admitted to the hospitalist service for further evaluation management was seen in consultation by Orthopedic surgery. Please see above for further details. She underwent right total hip arthroplasty on 02/21/2022 and tolerated this procedure well. She participated in PT/OT during her admission and will continue therapy with home health following discharge. She will follow-up with orthopedic surgery in 6 weeks. During admission, she was found to have mild commu
== END 2022-02-23 17:34 | disposition home health service (06) | DRG 521 ==
LOC: ANHED 15:59 → ANH2MED 17:26
PROVIDERS: Orthopaedic Surgery; Physician Assistant; Admitting Provider Internal Medicine; Emergency Provider Preventive Medicine Aerospace Medicine; Visit Provider Family Medicine
PROC: 0SR904A Replacement of Right Hip Joint with Ceramic on Polyethylene Synthetic Substitute, Uncemented, Open Approach (ICD-10-PCS; CPT 27130; principal; 2022-02-21 15:30)
DX: S72.011A Unspecified intracapsular fracture of right femur, initial encounter for closed fracture (principal); J18.9 Pneumonia, unspecified organism; I10 Essential (primary) hypertension; E78.5 Hyperlipidemia, unspecified; E11.9 Type 2 diabetes mellitus without complications; K21.9 Gastro-esophageal reflux disease without esophagitis; E89.0 Postprocedural hypothyroidism; N28.9 Disorder of kidney and ureter, unspecified; D64.9 Anemia, unspecified; M16.11 Unilateral primary osteoarthritis, right hip; R91.1 Solitary pulmonary nodule; F41.9 Anxiety disorder, unspecified; W54.1XXA Struck by dog, initial encounter; Z20.822 Contact with and (suspected) exposure to COVID-19; Z87.891 Personal history of nicotine dependence; Z79.4 Long term (current) use of insulin; Z86.010 Personal history of colon polyps; Z90.710 Acquired absence of both cervix and uterus; Z80.0 Family history of malignant neoplasm of digestive organs
CPT/HCPCS: 36415; 71045; 71275; 72170; 73501; 73552; 73560; 80048; 80053; 82948; 83036; 83735; 84439; 84443; 84480; 84484; 85025; 85027; 86850; 86900; 86901; 87502; 93005; 96374; 96375; 97110; 97116; 97161; 97165; 97530; 97535; 99285; A9270; C1713; C1776; C9803; J0171; J0690; J1170; J1815; J1885; J2250; J2270; J2405; J2795; J3010; J7030; J7120; Q9967; U0003; U0005